=== PATIENT | female | born 1990 | race Caucasian/White ===

== ENCOUNTER 2017-03-11 20:19 | Emergency (ER) | payer BC, OTHER, SELFPAY | END 2017-03-11 22:58 | disposition home or self-care (01) | LOC: ERS 20:19 | DX: M79.602 Pain in left arm (principal); F41.9 Anxiety disorder, unspecified; F32.9 Major depressive disorder, single episode, unspecified; F17.210 Nicotine dependence, cigarettes, uncomplicated | CPT/HCPCS: 99283 ==

== ENCOUNTER 2017-04-09 22:11 | Emergency (ER) | payer BC, OTHER, SELFPAY | END 2017-04-09 23:15 | disposition home or self-care (01) | LOC: ERS 22:11 | DX: J06.9 Acute upper respiratory infection, unspecified (principal); F32.9 Major depressive disorder, single episode, unspecified; Z87.891 Personal history of nicotine dependence; Z79.899 Other long term (current) drug therapy | CPT/HCPCS: 87804; 99283 ==